=== PATIENT | male | born 1985 | race Two or more races ===

== ENCOUNTER 2021-11-14 10:41 | Emergency (ER) | payer BC, OTHER ==
[~2021-11-14] VITALS: Ht 175.3 cm; Wt 106.9 kg
[2021-11-14 12:43] LABS: Basophils # (auto) 0 10 ^3/uL (0-0.2); Basophils % (auto) 0.2 % (0.0-2.0); Eosinophils # (auto) 0.1 10 ^3/uL (0-0.8); Eosinophils % (auto) 0.9 % (0.0-7.0); Monocytes # (auto) 0.5 10 ^3/uL (0-1.3); Neutrophils # (auto) 2.8 10 ^3/uL (1.6-8.6)
[2021-11-14 12:45] LABS: Lymphocytes # (auto) 2.8 10 ^3/uL (0.4-5.4); Lymphocytes % (auto) 45.5 % (10.0-50.0); Mean Corpuscular Hemoglobin 26.3 pg (28.0-32.0); Mean Corpuscular Hgb Conc. 32.6 g/dL (32.0-36.0); Mean Corpuscular Volume 80.7 fL (80.0-100.0); Monocytes % (auto) 8.6 % (0.0-12.0); Neutrophils % (auto) 44.8 % (37.0-80.0); Red Blood Cells 5.33 10^6/uL (4.5-5.90); Red Cell Distribution Width 13.9 % (11.8-14.3); White Blood Cell 6.3 10^3/uL (4.4-10.8)
[2021-11-14 13:04] LABS: INR 0.95 (0.9-1.15); Partial Thromboplastin Time 31.4 sec (24.6-33.4)
[2021-11-14 13:07] LABS: Albumin 4.1 g/dL (3.4-5.0); BUN/Creatinine Ratio 15.1; Calcium 8.7 mg/dL (8.5-10.1); Potassium 3.7 mmol/L (3.5-5.1)
[2021-11-14 13:09] LABS: Bilirubin, Total 0.6 mg/dL (0.2-1.0)
[2021-11-14] MEDS ORDERED: IOHEXOL 300 MG/ML 100ML BOTTLE IJ ONE (14:02)
[2021-11-14] MEDS ORDERED: CIPR-173 PO (15:26)
[2021-11-14] MEDS ORDERED: METR500T PO (15:49)
[2021-11-14 16:33] VITALS: BP 120/64
== END 2021-11-14 16:30 | disposition home or self-care (01) ==
LOC: ER 10:41
DX: K92.1 Melena (principal); K52.9 Noninfective gastroenteritis and colitis, unspecified; K57.12 Diverticulitis of small intestine without perforation or abscess without bleeding
CPT/HCPCS: 36415; 74177; 80053; 85025; 85610; 85730; 99285; Q9967